=== PATIENT | male | born 1965 | race Caucasian/White ===

== ENCOUNTER 2019-03-04 21:22 | Inpatient (IN) | payer OTHER ==
[2019-03-04] MEDS ORDERED: Ticagrelor* 90 MG TAB PO ONE (21:24)
[2019-03-04] MEDS ORDERED: Heparin for STEMI(*) 5,000 UNITS/ML 1 ML VIAL IV ONE (21:24)
--- NOTE | 2019-03-04 21:29 | ED ---
HPI Chest Pain - HPI Summary HPI Summary: Patient is a 53 y/o M presenting to [facility] via EMS for STEMI. 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 SOB and diaphoresis are endorsed as well. 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 EMS 12 lead was diagnostic for STEMI. ASA 324 and 3 nitro SL were administered. Patient rates current pain 6/10. 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 Patient is supposed to be on Xarelto but stopped taking this and all his other medications two years ago. Patient has two stents placed in his right leg. He is a current 2 pack a day smoker. Home medications and allergies are reviewed. - History of Current Complaint Hx Obtained From: Patient Onset/Duration: Started Hours Ago, Still Present Timing: Constant, Lasting Hours Initial Severity: Severe Current Severity: Moderate Pain Scale Used: 0-10 Numeric Chest Pain Location: Lower Sternal Character: Crushing Associated Signs and Symptoms: Positive: Chest Pain, Shortness of Breath, Diaphoresis - Allergy/Home Medications Allergies/Adverse Reactions: Allergies Allergy/AdvReac Type Severity Reaction Status Date / Time Iodinated Contrast Media Allergy Swelling Verified 03/04/19 22:02 Of Face,Lips,& Throat Home Medications: Home Medications NK [No Home Medications Reported] 03/04/19 [History Confirmed 03/04/19] PMH/Surg Hx/FS Hx/Imm Hx Endocrine/Hematology History: Denies: Hx Diabetes, Hx Thyroid Disease Cardiovascular History: Reports: Hx Hypertension - PT CURRENTLY NOT ON MEDS Respiratory History: Denies: Hx Asthma, Hx Chronic Obstructive Pulmonary Disease (COPD) GI History: Denies: Hx Ulcer - Surgical History Surgery Procedure, Year, and Place: LEG SURGERY FOR BLOOD CLOTS ("BLEW THE CLOTS OUT AND PUT A STENT IN") Infectious Disease History: Denies: Hx Hepatitis, Hx Human Immunodeficiency Virus (HIV) - Family History Known Family History: Positive: Other - Liver cancer - father - Social History Alcohol Use: None Substance Use Type: Reports: None Smoking Status (MU): Heavy Every Day Tobacco Smoker Type: Cigarettes Amount Used/How Often: 1ppd Review of Systems Positive: Skin Diaphoresis Positive: Chest Pain Positive: Shortness Of Breath All Other Systems Reviewed And Are Negative: Yes Physical Exam - Summary Physical Exam Summary: General: Well-developed, Well-nourished Male. He appears older than stated age. Patient presents in moderate discomfort. HEENT: Normocephalic, Atraumatic. Eyes: Conjuctiva normal, PERRL. Ears: TMs within normal limits. Nares: (-) discharge, (-) erythema. Oropharynx: Clear, mucous membranes moist, (-) exudates. Neck: Soft, FROM, (-) lymphadenopathy, (-) thyromegaly, (-) JVD. Cardiovascular: Normal sinus rhythm, (-) murmur. Lungs: Clear to auscultation bilaterally (-) wheezes, (-) rales, (-) rhonchi. Abdomen: Soft, non-tender, non-distended, (-) organomegaly, normal bowel sounds. Back: (-) CVA tenderness Extremities: No edema. Skin: Warm, dry, (-) rash. Neuro: Alert and oriented x3, no focal deficits. Psychiatric: Mood normal, affect normal. Triage Information Reviewed: Yes Vital Signs On Initial Exam: Initial Vitals Pulse Resp BP Pulse Ox 91 19 176/116 99 03/04/19 21:24 03/04/19 21:24 03/04/19 21:24 03/04/19 21:24 Vital Signs Reviewed: Yes Procedures - Sedation Patient Received Moderate/Deep Sedation with Procedure: No Diagnostics - Laboratory Result Diagrams: 03/04/19 21:38 03/04/19 21:38 Lab Statement: Any lab studies that have been ordered have been reviewed, and results considered in the medical decision making process. - EKG 2127 Cardiac Rate: NL - rate of 92 BPM EKG Rhythm: Sinus Rhythm ST Segment: Other Summary of EKG Findings: EKG was positive for STEMI. ST elevations noted in V1- V4. This EKG was reviewed and interpreted by Dr. Milian. Chest Pain Course/Dx - Course Course Of Treatment: 53-year-old male presents from home by ambulance with sudden onset of severe chest pain. Accompanied by shortness of breath and diaphoresis. No cardiac history but multiple risk factors. EMS administered 324 ASA and 3 nitro SL. STEMI alert was called.During ED course, patient received Brilinta 180 mg PO, Nitro Drip 25,000 mcg in 250 mls, Heparin Drip 25, 000 units in 500 mls, and Heparin Bolus 4000 units IV. patient met in the emergency room by Dr. stevens. Taken to the Director Of Financial Aid for STEMI. - Diagnoses Provider Diagnoses: STEMI (ST elevation myocardial infarction) During the Visit The Following Alert/Code Occurred: STEMI - STEMI called on overhead at 2108 with ETA of approximately 20 minutes. 2120 - EMS arrived with patient, provider in room to evaluate immediately. - Provider Notifications Discussed Care Of Patient With: Marilin Rivera Time Discussed With Above Provider: 21:26 Instructed by Provider To: Other - 2125 - Patient's case was discussed with Dr. Rivera, Dr. Rivera en-route to ED. 2144 - Dr. Rivera evaluated the patient, patient was taken to pathology lab technician. Discharge ED - Sign-Out/Discharge Documenting (check all that apply): Patient Departure - admit - Discharge Plan Condition: Guarded Disposition: ADMITTED TO [facility] - Billing Disposition and Condition Condition: GUARDED Disposition: Admitted to [facility] - Attestation Statements Document Initiated by Daryle: Yes Documenting Scribe: MELINDA DIGGS Provider For Whom Scribe is Documenting (Include Credential): KIM MILIAN MD Scribe Attestation: I, MELINDA DIGGS, scribed for KIM MILIAN MD on 03/05/19 at 0004. Scribe Documentation Reviewed: Yes Provider Attestation: The documentation as recorded by the primoibMELINDA lowry accurately reflects the service I personally performed and the decisions made by me, KIM MILIAN MD Status of Scribe Document: Viewed
[2019-03-04] MEDS ORDERED: Heparin DRIP 25,000 UNITS(*) 25,000 UNITS/500 ML BAG ONE (21:32)
[2019-03-04] MEDS ORDERED: nitroGLYCERIN DRIP* 25,000 MCG/250 ML BTL ONE ×2 (21:32→23:05)
[2019-03-04] MEDS ORDERED: nitroGLYCERIN DRIP* 25,000 MCG/250 ML BTL IV ONE (21:37)
[2019-03-04] MEDS ORDERED: diPHENhydraMINE IV* 50 MG/ML 1 ml VIAL (BENADRYL) ONE (21:50)
[2019-03-04] MEDS ORDERED: methylPREDNISolone 125 MG* 2 ML VIAL ONE (21:50)
[2019-03-04 21:55] LABS: ABS Basophils 0.1 10^3/ul (0-0.2); ABS Eosinophils 0.3 10^3/ul (0-0.6); ABS Monocytes 1.2 10^3/ul (0-0.8); ABS Neutrophils 5.6 10^3/ul (1.5-7.7); Eosinophil % 2.7 %; Hematocrit 38 % (42-52); Hemoglobin 13.2 g/dL (14.0-18.0); Lymphocyte % 29.9 %; Mean Corpuscular HGB Conc 35 g/dL (31-36); Mean Corpuscular Hemoglobin 31 pg (27-31); Mean Corpuscular Volume 90 fL (80-94); Mean Platelet Volume 7.7 fL (7.4-10.4); Platelet Count 318 10^3/uL (150-450); Red Blood Count 4.25 10^6 /uL (4.18-5.48); Red Cell Distribution Width 15 % (10-15); White Blood Count 10.2 10^3/uL (3.5-10.8)
[2019-03-04] MEDS ORDERED: Iodixanol 320 (CONTRAST) 100 ML SDV ONE ×2 (21:56→22:13)
[2019-03-04] MEDS ORDERED: Midazolam* 1 MG/ML 5 ML VIAL (5 MG) ONE (21:56)
[2019-03-04] MEDS ORDERED: fentaNYL* 50 MCG/ML 2 ML VIAL (100 MCG VIAL) ONE ×2 (21:56→22:48)
[2019-03-04 22:09] LABS: ALT 23 U/L (7-52); AST 20 U/L (13-39); Albumin 4.3 g/dL (3.2-5.2); Albumin/Globulin Ratio 1.3 (1-3); Alkaline Phosphatase 52 U/L (34-104); Anion Gap 8 mmol/L (2-11); BUN/Creatinine Ratio 13.9 (8-20); Blood Urea Nitrogen 17 mg/dL (6-24); CO2 Carbon Dioxide 26 mmol/L (22-32); Calcium 9.6 mg/dL (8.6-10.3); Chloride 100 mmol/L (101-111); Creatine Kinase 79 U/L (10-223); EGFR African American 74.9 (>60); EGFR Non-African American 61.9 (>60); Globulin 3.3 g/dL (2-4); Glucose 135 mg/dL (70-100); LDL Cholesterol Direct 196 mg/dL; Potassium 3.4 mmol/L (3.5-5.0); Sodium 134 mmol/L (135-145); Total Protein 7.6 g/dL (6.4-8.9)
[2019-03-04] MEDS ORDERED: KCL 10 MEQ/50 ML IVPREMIX* 10 MEQ/50 ML BAG ONE (22:10)
[2019-03-04 22:13] LABS: Myoglobin 129.5 ng/mL (17.4-105.7)
[2019-03-04 22:14] LABS: CKMB ng/mL 2.9 ng/mL (0.6-6.3)
[2019-03-04 22:16] LABS: Troponin I 0.09 ng/mL (<0.04)
[2019-03-04] MEDS ORDERED: Heparin(*) 1000 UNIT/ML 10 ML VIAL CATH LAB IV ONE (23:04)
[2019-03-04] MEDS ORDERED: VERAPAMIL 2.5 MG/ML 2 ML VIAL ** 5 mg/2 ml ONE (23:04)
[2019-03-04] MEDS ORDERED: Heparin 2 UNITS/ML IVPREMIX* 2,000 ML IV ONE (23:05)
[2019-03-04] MEDS ORDERED: Lidocaine 1% INJ* 10 MG/ML 30 ML SDV ONE (23:05)
[2019-03-04] MEDS ORDERED: NS 0.9% 1000 ML** 1,000 ML IV SCH (23:15)
[2019-03-04 23:36] LABS: Cholesterol 248 mg/dL; LDL Cholesterol 172 mg/dL; Triglycerides 254 mg/dL
[2019-03-04] MEDS ORDERED: nitroGLYCERIN DRIP* 25,000 MCG/250 ML BTL IV SCH (23:45)
[2019-03-04] MEDS: fentaNYL* 50 MCG/ML 2 ML VIAL (100 MCG VIAL) IV PRN (23:51)
[2019-03-05] MEDS: Metoprolol Tartrate TAB* 25 MG PO SCH ×2 (00:06→06:04)
[2019-03-05] MEDS: Atorvastatin* 80 MG TAB PO SCH ×2 (00:06→16:38)
[2019-03-05] MEDS: Enoxaparin(*) 40 MG/0.4 ML SYR SUBCUT SCH ×2 (00:07→21:13)
[2019-03-05 00:59] LABS: Creatine Kinase 1530 U/L (10-223)
[2019-03-05 01:04] LABS: CKMB ng/mL 224.1 ng/mL (0.6-6.3)
[2019-03-05 01:05] LABS: Troponin I 16.85 ng/mL (<0.04)
[2019-03-05] MEDS: oxyCODONE/Acetamin 5/325 MG* TAB PO PRN (02:39)
[2019-03-05 05:13] LABS: Anion Gap 8 mmol/L (2-11); Blood Urea Nitrogen 19 mg/dL (6-24); CO2 Carbon Dioxide 23 mmol/L (22-32); Calcium 9.3 mg/dL (8.6-10.3); Chloride 102 mmol/L (101-111); EGFR African American 94.2 (>60); EGFR Non-African American 77.9 (>60); Glucose 148 mg/dL (70-100); Potassium 4.2 mmol/L (3.5-5.0); Sodium 133 mmol/L (135-145)
[2019-03-05 05:19] LABS: CKMB ng/mL > 300.0 ng/mL (0.6-6.3); Troponin I 67.81 ng/mL (<0.04)
[2019-03-05 05:31] LABS: Creatine Kinase 2489 U/L (10-223)
[2019-03-05] MEDS: fentaNYL* 50 MCG/ML 2 ML VIAL (100 MCG VIAL) IV PRN (06:28)
[2019-03-05] MEDS ORDERED: Perflutren Lipid Microsphere* 3 ML VIAL ONE (08:14)
[2019-03-05] MEDS ORDERED: Metoprolol Tartrate TAB* 25 MG PO ONE (09:30)
--- NOTE | 2019-03-05 09:31 | PN ---
Subjective Date of Service: 03/05/19 - anterior STEMI s/p PCI Interval History: Patient presented 03/04/2019 to [facility] after 1.5 hours of ongoing substernal chest pain (ache) radiating down left arm with diaphoresis. Underwent urgent LHC due to anterior STEMI. No recurrent c/o chest pain since. Does c/o SOB. No dizziness , right radial access pain or palpitations. Right radial access site had scant oozing this morning thus, TR band still in place Medications Active Medications: Acetaminophen (Tylenol Tab*) 650 mg PO Q4H PRN PRN Reason: MILD PAIN or TEMP > 100.4 Aspirin (Aspirin 81 Mg Chew Tab*) 81 mg PO DAILY [facility] Atorvastatin Calcium (Lipitor*) 80 mg PO DAILY@1700 [facility] Last Admin: 03/05/19 00:06 Dose: 80 mg Enoxaparin Sodium (Lovenox(*)) 40 mg SUBCUT BEDTIME [facility] Last Admin: 03/05/19 00:07 Dose: 40 mg Fentanyl Citrate (Fentanyl*) 75 mcg 0.75 mcg/kg (71.5 mcg) IV Q4H PRN PRN Reason: PAIN - SEVERE Last Admin: 03/05/19 06:28 Dose: 75 mcg Metoprolol Tartrate (Lopressor Tab*) 25 mg PO Q6HR [facility] Last Admin: 03/05/19 06:04 Dose: 25 mg Nitroglycerin (Nitroglycerin Tab 0.4 Mg*) 0.4 mg SL Q5M PRN PRN Reason: ANGINA Oxycodone/Acetaminophen (Percocet 5/325 Tab*) 1 tab PO Q6H PRN PRN Reason: PAIN - MODERATE Last Admin: 03/05/19 02:39 Dose: 1 tab Ticagrelor (Brilinta*) 90 mg PO BID [facility] Objective Vital Signs: Temp Pulse Resp BP Pulse Ox 97.3 F 80 18 168/105 98 03/05/19 08:00 03/05/19 09:00 03/05/19 09:00 03/05/19 09:00 03/05/19 09:00 Oxygen Devices in Use Now: None Appearance: SOB with conversation, Alert and oriented. cooperative. Ears/Nose/Mouth/Throat: NL Teeth, Lips, Gums, Mucous Membranes Moist Neck: NL Appearance and Movements; NL JVP, Trachea Midline Respiratory: Symmetrical Chest Expansion and Respiratory Effort, Clear to Auscultation Cardiovascular: NL Sounds; No Murmurs; No JVD, No Edema Abdominal: NL Sounds; No Tenderness; No Distention Extremities: - - right radial access site examined. TR band in place( deflated) . cap refill < 3 seconds. 2+ right radial pulse. no thrill or hematoma. Neurological: Alert and Oriented x 3 Lines/Tubes/Other Access: Clean, Dry and Intact Peripheral IV Laboratory Results: 03/04/19 21:38 03/05/19 04:25 INR (Anticoag Therapy) 1.00 (0.82-1.09) 03/04/19 21:38 APTT 29.0 seconds (26.0-38.0) 03/04/19 21:38 Total Bilirubin 0.50 mg/dL (0.2-1.0) 03/04/19 21:38 AST 20 U/L (13-39) 03/04/19 21:38 ALT 23 U/L (7-52) 03/04/19 21:38 Alkaline Phosphatase 52 U/L (34-104) 03/04/19 21:38 CK-MB (CK-2) > 300.0 ng/mL (0.6-6.3) H 03/05/19 04:25 B-Natriuretic Peptide 62 pg/mL (<=100) 03/04/19 21:38 Total Protein 7.6 g/dL (6.4-8.9) 03/04/19 21:38 Albumin 4.3 g/dL (3.2-5.2) 03/04/19 21:38 Globulin 3.3 g/dL (2-4) 03/04/19 21:38 Albumin/Globulin Ratio 1.3 (1-3) 03/04/19 21:38 Triglycerides 254 mg/dL 03/04/19 21:38 Cholesterol 248 mg/dL 03/04/19 21:38 LDL Cholesterol 172 mg/dL 03/04/19 21:38 HDL Cholesterol 25.0 mg/dL 03/04/19 21:38 03/04/19 03/05/19 03/05/19 21:38 00:28 04:25 Troponin I 0.09 H* 16.85 H* 67.81 H* Laboratory Results - last 24 hr 03/04/19 03/04/19 03/04/19 21:38 21:38 21:38 WBC 10.2 RBC 4.25 Hgb 13.2 L Hct 38 L MCV 90 MCH 31 MCHC 35 RDW 15 Plt Count 318 MPV 7.7 Neut % (Auto) 55.2 Lymph % (Auto) 29.9 [place] % (Auto) 11.6 Eos % (Auto) 2.7 Baso % (Auto) 0.6 Absolute Neuts (auto) 5.6 Absolute Lymphs (auto) 3.0 Absolute Monos (auto) 1.2 H Absolute Eos (auto) 0.3 Absolute Basos (auto) 0.1 Absolute Nucleated RBC 0.0 Nucleated RBC % 0.0 INR (Anticoag Therapy) 1.00 APTT 29.0 POC Activ Clotting Time Sodium 134 L Potassium 3.4 L Chloride 100 L Carbon Dioxide 26 Anion Gap 8 BUN 17 Creatinine 1.22 H Est GFR ( Amer) 74.9 Est GFR (Non-Af Amer) 61.9 BUN/Creatinine Ratio 13.9 Glucose 135 H Hemoglobin A1c Lactic Acid Calcium 9.6 Total Bilirubin 0.50 AST 20 ALT 23 Alkaline Phosphatase 52 Total Creatine Kinase 79 CK-MB (CK-2) 2.9 Myoglobin 129.5 H Troponin I 0.09 H* B-Natriuretic Peptide Total Protein 7.6 Albumin 4.3 Globulin 3.3 Albumin/Globulin Ratio 1.3 Triglycerides 254 Cholesterol 248 LDL Cholesterol 172 LDL Cholesterol Direct 196 HDL Cholesterol 25.0 03/04/19 03/04/19 03/04/19 21:38 21:38 21:38 WBC RBC Hgb Hct MCV MCH MCHC RDW Plt Count MPV Neut % (Auto) Lymph % (Auto) [place] % (Auto) Eos % (Auto) Baso % (Auto) Absolute Neuts (auto) Absolute Lymphs (auto) Absolute Monos (auto) Absolute Eos (auto) Absolute Basos (auto) Absolute Nucleated RBC Nucleated RBC % INR (Anticoag Therapy) APTT POC Activ Clotting Time Sodium Potassium Chloride Carbon Dioxide Anion Gap BUN Creatinine Est GFR ( Amer) Est GFR (Non-Af Amer) BUN/Creatinine Ratio Glucose Hemoglobin A1c 6.1 H Lactic Acid 2.7 H* Calcium Total Bilirubin AST ALT Alkaline Phosphatase Total Creatine Kinase CK-MB (CK-2) Myoglobin Troponin I B-Natriuretic Peptide 62 Total Protein Albumin Globulin Albumin/Globulin Ratio Triglycerides Cholesterol LDL Cholesterol LDL Cholesterol Direct HDL Cholesterol 03/04/19 03/04/19 03/05/19 22:16 22:32 00:28 WBC RBC Hgb Hct MCV MCH MCHC RDW Plt Count MPV Neut % (Auto) Lymph % (Auto) [place] % (Auto) Eos % (Auto) Baso % (Auto) Absolute Neuts (auto) Absolute Lymphs (auto) Absolute Monos (auto) Absolute Eos (auto) Absolute Basos (auto) Absolute Nucleated RBC Nucleated RBC % INR (Anticoag Therapy) APTT POC Activ Clotting Time 219 255 Sodium Potassium Chloride Carbon Dioxide Anion Gap BUN Creatinine Est GFR ( Amer) Est GFR (Non-Af Amer) BUN/Creatinine Ratio Glucose Hemoglobin A1c Lactic Acid Calcium Total Bilirubin AST ALT Alkaline Phosphatase Total Creatine Kinase 1530 H CK-MB (CK-2) 224.1 H Myoglobin Troponin I 16.85 H* B-Natriuretic Peptide Total Protein Albumin Globulin Albumin/Globulin Ratio Triglycerides Cholesterol LDL Cholesterol LDL Cholesterol Direct HDL Cholesterol 03/05/19 04:25 WBC RBC Hgb Hct MCV MCH MCHC RDW Plt Count MPV Neut % (Auto) Lymph % (Auto) [place] % (Auto) Eos % (Auto) Baso % (Auto) Absolute Neuts (auto) Absolute Lymphs (auto) Absolute Monos (auto) Absolute Eos (auto) Absolute Basos (auto) Absolute Nucleated RBC Nucleated RBC % INR (Anticoag Therapy) APTT POC Activ Clotting Time Sodium 133 L Potassium 4.2 Chloride 102 Carbon Dioxide 23 Anion Gap 8 BUN 19 Creatinine 1.00 Est GFR ( Amer) 94.2 Est GFR (Non-Af Amer) 77.9 BUN/Creatinine Ratio 19.0 Glucose 148 H Hemoglobin A1c Lactic Acid Calcium 9.3 Total Bilirubin AST ALT Alkaline Phosphatase Total Creatine Kinase 2489 H CK-MB (CK-2) > 300.0 H Myoglobin Troponin I 67.81 H* B-Natriuretic Peptide Total Protein Albumin Globulin Albumin/Globulin Ratio Triglycerides Cholesterol LDL Cholesterol LDL Cholesterol Direct HDL Cholesterol Diagnostic Imaging: [facility] 03/04/2019; Proximal LAD 90%, Lcx mid 50%, RCA PDA small with diffuse plaque. Patient underwent ELLEN to proximal LAD with 3X16mm ELLEN distal edge dissection covered with 3X8mm ELLEN EKG Data: 03/05/2019; NSR rate [address] elevation in V1-3 with bisphasic TW. Telemetry; reviewed. NSR rate 65-75. Assessment/Plan #1 s/p Anterior STEMI 03/04/2019. Patient presented after 1.5 hours of onset of symptoms. Underwent successful ELLEN/ Proximal LAD complicated by distal edge dissection covered with 3X8mm ELLEN. No recurrent c/o chest pain (ache) Does report dyspnea. Lungs are clear on exam. ? due to Brilinta. I asked that he drink caffeine prior to taking Brilinta this morning. He is on ASA 81/day, Brilinta 90mg Po BID, Lipitor and Lopressor therapy. ECG revealed anterior ST elevation in V1-V3 with associated biphasic TW changes. Troponin has not peaked thus will cycle enzymes. Patient will need echo. LV gram not performed due to reported contrast allergy, he is to have echo updated today. In the past he was non compliant with medications however, he reports he will be compliant from now on. 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 Per patient he underwent stenting to right popliteal in 2010 and in 2011 had a recurrent DVT. He reports history of Lupus anticoagulant historically saw Dr. Randhawa. He stopped taking Xarelto 2 years ago. ( cites ignorance as to why he stopped medication, denies bleeding complication). Will consult hematology given patient is now on DAPT for above #1. Will continue Lovenox for the time being. Records requested from [facility] and Dr. Randhawa's office #3 h/o HLD; LDL this admit 172. Now on Lipitor 80QHS. Will need repeat FLP/LFT in 6-8 weeks. #4 HTN; on Lopressor 25mg PO Q6H. He recieved 2 doses. Will convert dosing to 50mg Po BID and uptitrate accordingly. Heart rate 65-70 on telemetry. He may benefit from ACEI. Will await echo. Renal function normalized with hydration. #5 Disposition pending course. Patient full code. Will d/w Dr Rivera. Attending: Marilin Rivera
[2019-03-05] MEDS: Ticagrelor* 90 MG TAB PO SCH ×2 (09:46→21:12)
[2019-03-05] MEDS: Aspirin 81 mg CHEW TAB* 81 MG TAB.CHEW PO SCH (09:46)
--- NOTE | 2019-03-05 09:53 | ECHO ---
*[facility]* [place] [address] Fax #: [phone] Transthoracic Echocardiogram Patient: Stan Toscano : 1965 Study Date: 03/05/2019 Age: 53 Gender: M HR: 81 bpm Height: 71 in /180.3 cm BSA: 2.15 m^2 Weight: 209.6 lb /95.3 kg BMI: 29.3 kg/m^2 *Circuit Design Engineer: * Christen Mcnamara RDCS RN *Referring Physician: * Marilin Rivera MD *Reading Physician: * Mali Cruz MD Indications: Myocardial Infarction (new). S/P PCI. History: Blood clots of the right leg with stenting. Factor V deficiency. Risk factors: Current tobacco use. Hypertension. Conclusions Summary: - Left ventricle: The cavity size is normal. Wall thickness is mildly to moderately increased. Systolic function is mildly reduced. The estimated ejection fraction is 45-50%. Hypokinesis of the mid-apicalanteroseptal myocardium. Hypokinesis of the apicalinferior myocardium. Hypokinesis of the apicallateral myocardium. Hypokinesis of the apicalanterior myocardium. - Right ventricle: Hypokinesis of the RV apex. - Mitral valve: There is trace regurgitation. - No previous echocardiogram available. Study data: Transthoracic echocardiogram. Procedure: Transthoracic echocardiography was performed. Image quality was fair. The study was technically limited due to Smoking history. Intravenous Definity 4 ml was administered by Anabel Mcnamara RN, RDCS to enhance imaging. Complete 2D, spectral Doppler, and color flow Doppler. Location: Bedside. Patient room number: ICU 8. Rhythm: Normal sinus rhythm with PVC's. Findings Left ventricle: The cavity size is normal. Wall thickness is mildly to moderately increased. Systolic function is mildly reduced. The estimated ejection fraction is 45-50%. Regional wall motion abnormalities: Hypokinesis of the mid-apicalanteroseptal myocardium. Hypokinesis of the apicalinferior myocardium. Hypokinesis of the apicallateral myocardium. Hypokinesis of the apicalanterior myocardium. Doppler parameters are consistent with abnormal left ventricular relaxation (grade 1 diastolic dysfunction). Right ventricle: The cavity size is normal. Systolic function is normal. Hypokinesis of the RV apex. Left atrium: The atrium is normal in size. Right atrium: The atrium is normal in size. Mitral valve: The leaflets are normal thickness. There is no evidence of stenosis. There is trace regurgitation. Aortic valve: The valve is trileaflet. The leaflets are mildly thickened. There is no evidence of stenosis. There is no significant regurgitation. Tricuspid valve: The leaflets are normal thickness. There is no evidence of stenosis. There is trace regurgitation. Pulmonic valve: The leaflets are normal thickness. There is no evidence of stenosis. There is trace regurgitation. Aorta: Aortic root: The aortic root is appears normal. Ascending aorta: The ascending aorta is appears normal. Aortic arch: The aortic arch is not dilated. Pericardium: There is no significant pericardial effusion. Pulmonary arteries: The main pulmonary artery is normal-sized. Systolic pressure can not be accurately estimated. Systemic veins: Not visualized. Measurements Left ventricle Value Ref Aortic valve Value Ref PARK, LAX 4.6 cm 4.2 - 5.8 Nas diam, ED 1.7 cm ---- ESD, LAX 3.8 cm 2.5 - 4.0 Peak v, S 1.27 m/sec ---- FS, LAX (L) 17 % 25 - 43 VTI, S 21.3 cm ---- PW, ED (H) 1.2 cm 0.6 - 1.0 Mean grad, S 4.0 mm Hg ---- IVS/PW, ED 1.12 Peak grad, S 6.0 mm Hg ---- E', lat nas, TDI (L) 7.3 cm/sec >=10.0 LVOT/AV, VTI ratio 0.96 --- - E/e', lat nas, 8 TDI Mitral valve Value Ref E', med nas, TDI (L) 6.6 cm/sec >=7.0 Peak E 0.6 m/sec --- - E/e', med nas, 9 Peak A 0.8 m/sec ---- TDI Decel time 211 ms ---- E', avg, TDI 7.0 cm/sec Peak E/A ratio 0.8 ---- E/e', avg, TDI 9 <=14 Pulmonic valve Value Ref LVOT Value Ref Peak v, S 0.98 m/sec ---- Peak gamaliel, S 1.08 m/sec Peak grad, S 4.0 mm Hg ---- VTI, S 20.4 cm Mean grad, S 3 mm Hg Aortic root Value Ref Root diam 3.1 cm <4.3 Ventricular septum Value Ref IVS, ED (H) 1.4 cm 0.6 - 1.0 Ascending aorta Value Ref AAo AP diam, S 3.0 cm ---- Right ventricle Value Ref PARK minor ax, 2.9 cm 1.9 - 3.5 Aortic arch Value Ref A4C mid Arch diam 2.9 cm ---- Left atrium Value Ref Decending aorta Value Ref AP dim, ES 3.50 cm 3.00 - Luiza peak gamaliel 0.73 m/sec ---- 4.00 ML dim, A4C 4.1 cm SI dim, A4C 4.5 cm Vol/bsa, ES, 1-p 18 ml/m^2 12 - 37 A4C Vol/bsa, ES, A/L 31 ml/m^2 16 - 34 Right atrium Value Ref ML dim, ES, A4C 3.7 cm 2.6 - 4.4 SI dim, ES, A4C 4.4 cm 3.4 - 5.3 Legend: (L) and (H) navid values outside specified reference range. Prepared and electronically signed by Mali Cruz MD 03/05/2019 09:53
[2019-03-05] MEDS ORDERED: Lisinopril TAB* 5 MG PO SCH (10:00)
[2019-03-05 10:03] LABS: Urine Appearance Clear; Urine Bilirubin Negative (Negative); Urine Blood Negative (Negative); Urine Color Straw; Urine Glucose Negative (Negative); Urine Ketones Negative (Negative); Urine Nitrite Negative (Negative); Urine Protein Negative (Negative); Urine Specific Gravity 1.015 (1.010-1.030); Urine Urobilinogen Negative (Negative)
[2019-03-05 10:19] LABS: Troponin I > 74.00 ng/mL (<0.04)
[2019-03-05 11:03] LABS: Creatine Kinase 2195 U/L (10-223)
--- NOTE | 2019-03-05 12:18 | CONSULT ---
<Halima Corbett - Last Filed: 03/05/19 17:35> Consultation - Reason for Consultation Reason for Consultation: Lupus Anticardiolipin antibody, Anticoagulation recommendation Ordering Provider: Marilin Rivera Chief Complaint: Chest pain History of Present Illness: Mr. 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 This was initially treated @ [facility] and he was seen by Dr. Randhawa in October of 2011. He was initially treated with arterial stenting and coumadin, however, had recurrent thrombus and was transitioned to Arixta. Mr. Toscano struggled with the injections and in August 2012 transition to Xarelto 20 mg daily. He was followed routinely until October of 2014 at which time he was lost to f/u for unclear reasons. Presented to the hospital with several days of chest pain, found to have an anterior STEMI and subsequently had catheterization with stent placement. Per cardiology blockage 2/2 plaque, rupture with thrombis NOT felt to be emboli given progressive symptoms over 3 weeks. Mr. Toscano tells me he stopped taking his anticoagulant as he was "sick of the doctor and you had to see the doctor to get it." States he is exhausted as he has not slept since last night. Chest pain persists though nitro is helping, "They tell me they couldn't open one so its the only thing that will help it to finally push through." Allergies/Medications Medication: Home Medications: Not currently taking any meds Current Medications: Acetaminophen (Tylenol Tab*) 650 mg PO Q4H PRN PRN Reason: MILD PAIN or TEMP > 100.4 Aspirin (Aspirin 81 Mg Chew Tab*) 81 mg PO DAILY [facility] Last Admin: 03/05/19 09:46 Dose: 81 mg Atorvastatin Calcium (Lipitor*) 80 mg PO DAILY@1700 [facility] Last Admin: 03/05/19 00:06 Dose: 80 mg Captopril (Capoten Tab*) 6.25 mg PO TID [facility] Enoxaparin Sodium (Lovenox(*)) 40 mg SUBCUT BEDTIME [facility] Last Admin: 03/05/19 00:07 Dose: 40 mg Metoprolol Tartrate (Lopressor Tab*) 50 mg PO BID [facility] Nicotine (Nicotine Patch 21 Mg/24 Hr*) 1 patch TRANSDERM DAILY@0800 [facility] Nitroglycerin (Nitroglycerin Tab 0.4 Mg*) 0.4 mg SL Q5M PRN PRN Reason: ANGINA Oxycodone/Acetaminophen (Percocet 5/325 Tab*) 1 tab PO Q6H PRN PRN Reason: PAIN - MODERATE Last Admin: 03/05/19 02:39 Dose: 1 tab Pharmacy Profile Note (Nicotine Patch Removal Note*) 1 note FOLLOW UP 0600 [facility] Temazepam (Restoril Cap*) 15 mg PO BEDTIME PRN PRN Reason: INSOMNIA Ticagrelor (Brilinta*) 90 mg PO BID [facility] Last Admin: 03/05/19 09:46 Dose: 90 mg Allergies/Adverse Reactions: Allergies Allergy/AdvReac Type Severity Reaction Status Date / Time Iodinated Contrast Media Allergy Swelling Verified 03/04/19 22:02 Of Face,Lips,& Throat History - Past Medical History Hx Circulatory Problems: Yes - PVD Hx Hypertension: Yes Other History: COPD. Depression - Family History Hx Family Cancer: Yes - father lung cancer, non-smoker Other Family History: no history of blood clots in family - Social History Hx Alcohol Use: No Hx Tobacco Use: Yes Marital Status: Number of Children: 4 Review of Systems - Review of Systems Constitutional Symptoms: Positive: Fatigue Dermatology: Positive: Normal HEENT: Positive: Normal Eyes: Positive: Normal Pulmonary: Positive: Normal Cardiology: Positive: Chest Pain Gastroenterology: Positive: Normal Hematologic/Lymphatic: Positive: Other - Lupus anticardiolipin antibody Neurology: Positive: Other - Forgetful Physical Exam - Physical Exam Physical Examination: A&Ox3, EOMI, neuro grossly non-focal - request things be written down d/t forgetfulness HRR, S1S2, SR on tele LS clear bilat. with even and non-labored resp. +BS, soft and non-tender Rwrist cath site benign +PP=bilat, no peripheral edema noted Slightly flushed cheeks Results - Lab Results Lab Results: 03/04/19 03/04/19 03/04/19 21:38 21:38 21:38 WBC 10.2 RBC 4.25 Hgb 13.2 L Hct 38 L MCV 90 MCH 31 MCHC 35 RDW 15 Plt Count 318 MPV 7.7 Neut % (Auto) 55.2 Lymph % (Auto) 29.9 Mingo % (Auto) 11.6 Eos % (Auto) 2.7 Baso % (Auto) 0.6 Absolute Neuts (auto) 5.6 Absolute Lymphs (auto) 3.0 Absolute Monos (auto) 1.2 H Absolute Eos (auto) 0.3 Absolute Basos (auto) 0.1 Absolute Nucleated RBC 0.0 Nucleated RBC % 0.0 INR (Anticoag Therapy) 1.00 APTT 29.0 POC Activ Clotting Time Sodium 134 L Potassium 3.4 L Chloride 100 L Carbon Dioxide 26 Anion Gap 8 BUN 17 Creatinine 1.22 H Est GFR ( Amer) 74.9 Est GFR (Non-Af Amer) 61.9 BUN/Creatinine Ratio 13.9 Glucose 135 H Hemoglobin A1c Lactic Acid Calcium 9.6 Total Bilirubin 0.50 AST 20 ALT 23 Alkaline Phosphatase 52 Total Creatine Kinase 79 CK-MB (CK-2) 2.9 Myoglobin 129.5 H Troponin I 0.09 H* B-Natriuretic Peptide Total Protein 7.6 Albumin 4.3 Globulin 3.3 Albumin/Globulin Ratio 1.3 Triglycerides 254 Cholesterol 248 LDL Cholesterol 172 LDL Cholesterol Direct 196 HDL Cholesterol 25.0 Urine Color Urine Appearance Urine pH Ur Specific Monroe Urine Protein Urine Ketones Urine Blood Urine Nitrate Urine Bilirubin Urine Urobilinogen Ur Leukocyte Esterase Urine Glucose 03/04/19 03/04/19 03/04/19 21:38 21:38 21:38 WBC RBC Hgb Hct MCV MCH MCHC RDW Plt Count MPV Neut % (Auto) Lymph % (Auto) Mingo % (Auto) Eos % (Auto) Baso % (Auto) Absolute Neuts (auto) Absolute Lymphs (auto) Absolute Monos (auto) Absolute Eos (auto) Absolute Basos (auto) Absolute Nucleated RBC Nucleated RBC % INR (Anticoag Therapy) APTT POC Activ Clotting Time Sodium Potassium Chloride Carbon Dioxide Anion Gap BUN Creatinine Est GFR ( Amer) Est GFR (Non-Af Amer) BUN/Creatinine Ratio Glucose Hemoglobin A1c 6.1 H Lactic Acid 2.7 H* Calcium Total Bilirubin AST ALT Alkaline Phosphatase Total Creatine Kinase CK-MB (CK-2) Myoglobin Troponin I B-Natriuretic Peptide 62 Total Protein Albumin Globulin Albumin/Globulin Ratio Triglycerides Cholesterol LDL Cholesterol LDL Cholesterol Direct HDL Cholesterol Urine Color Urine Appearance Urine pH Ur Specific Monroe Urine Protein Urine Ketones Urine Blood Urine Nitrate Urine Bilirubin Urine Urobilinogen Ur Leukocyte Esterase Urine Glucose 03/04/19 03/04/19 03/05/19 22:16 22:32 00:28 WBC RBC Hgb Hct MCV MCH MCHC RDW Plt Count MPV Neut % (Auto) Lymph % (Auto) Mingo % (Auto) Eos % (Auto) Baso % (Auto) Absolute Neuts (auto) Absolute Lymphs (auto) Absolute Monos (auto) Absolute Eos (auto) Absolute Basos (auto) Absolute Nucleated RBC Nucleated RBC % INR (Anticoag Therapy) APTT POC Activ Clotting Time 219 255 Sodium Potassium Chloride Carbon Dioxide Anion Gap BUN Creatinine Est GFR ( Amer) Est GFR (Non-Af Amer) BUN/Creatinine Ratio Glucose Hemoglobin A1c Lactic Acid Calcium Total Bilirubin AST ALT Alkaline Phosphatase Total Creatine Kinase 1530 H CK-MB (CK-2) 224.1 H Myoglobin Troponin I 16.85 H* B-Natriuretic Peptide Total Protein Albumin Globulin Albumin/Globulin Ratio Triglycerides Cholesterol LDL Cholesterol LDL Cholesterol Direct HDL Cholesterol Urine Color Urine Appearance Urine pH Ur Specific Monroe Urine Protein Urine Ketones Urine Blood Urine Nitrate Urine Bilirubin Urine Urobilinogen Ur Leukocyte Esterase Urine Glucose 03/05/19 03/05/19 03/05/19 04:25 09:15 09:45 WBC RBC Hgb Hct MCV MCH MCHC RDW Plt Count MPV Neut % (Auto) Lymph % (Auto) Mingo % (Auto) Eos % (Auto) Baso % (Auto) Absolute Neuts (auto) Absolute Lymphs (auto) Absolute Monos (auto) Absolute Eos (auto) Absolute Basos (auto) Absolute Nucleated RBC Nucleated RBC % INR (Anticoag Therapy) APTT POC Activ Clotting Time Sodium 133 L Potassium 4.2 Chloride 102 Carbon Dioxide 23 Anion Gap 8 BUN 19 Creatinine 1.00 Est GFR ( Amer) 94.2 Est GFR (Non-Af Amer) 77.9 BUN/Creatinine Ratio 19.0 Glucose 148 H Hemoglobin A1c Lactic Acid Calcium 9.3 Total Bilirubin AST ALT Alkaline Phosphatase Total Creatine Kinase 2489 H 2195 H CK-MB (CK-2) > 300.0 H 296.0 H Myoglobin Troponin I 67.81 H* > 74.00 H* B-Natriuretic Peptide Total Protein Albumin Globulin Albumin/Globulin Ratio Triglycerides Cholesterol LDL Cholesterol LDL Cholesterol Direct HDL Cholesterol Urine Color Straw Urine Appearance Clear Urine pH 6.0 Ur Specific Monroe 1.015 Urine Protein Negative Urine Ketones Negative Urine Blood Negative Urine Nitrate Negative Urine Bilirubin Negative Urine Urobilinogen Negative Ur Leukocyte Esterase Negative Urine Glucose Negative Assessment and Plan Impression: 53 yo male with history of recurrent thrombosis with known Lupus anticardiolipin antibody admitted to the ICU for anterior STEMI s/p stent on dual platelet antibody, fortunately this current event does not appear related to acute thrombus. Recurrent thrombus risk very high with known antibody, fortunately he has not had a life threatening event while off anticoagulation. There is no contraindication to full dose anticoagulation with his current treatment and therefore resumption of his Xarelto is most appropriate. I reviewed this with him at length and he understands the reasoning and need for follow-up as an outpatient. Plan: Management per Cardiology Recommend full dose anticoagulation with Xarelto 20 mg daily starting tomorrow evening, give with meal Case reviewed with attending, Dr. Maurer. Plan for hem. f/u with Dr. Randhawa as outpatient ~ 1 mo. post d/c to review need for life long anticoagulation <Kalie Maurer - Last Filed: 03/06/19 07:14> Results - Lab Results Lab Results: 03/04/19 03/04/19 03/04/19 21:38 21:38 21:38 WBC 10.2 RBC 4.25 Hgb 13.2 L Hct 38 L MCV 90 MCH 31 MCHC 35 RDW 15 Plt Count 318 MPV 7.7 Neut % (Auto) 55.2 Lymph % (Auto) 29.9 Mingo % (Auto) 11.6 Eos % (Auto) 2.7 Baso % (Auto) 0.6 Absolute Neuts (auto) 5.6 Absolute Lymphs (auto) 3.0 Absolute Monos (auto) 1.2 H Absolute Eos (auto) 0.3 Absolute Basos (auto) 0.1 Absolute Nucleated RBC 0.0 Nucleated RBC % 0.0 INR (Anticoag Therapy) 1.00 APTT 29.0 POC Activ Clotting Time Sodium 134 L Potassium 3.4 L Chloride 100 L Carbon Dioxide 26 Anion Gap 8 BUN 17 Creatinine 1.22 H Est GFR ( Amer) 74.9 Est GFR (Non-Af Amer) 61.9 BUN/Creatinine Ratio 13.9 Glucose 135 H POC Glucose (mg/dL) Hemoglobin A1c Lactic Acid Calcium 9.6 Magnesium Total Bilirubin 0.50 AST 20 ALT 23 Alkaline Phosphatase 52 Total Creatine Kinase 79 CK-MB (CK-2) 2.9 Myoglobin 129.5 H Troponin I 0.09 H* B-Natriuretic Peptide Total Protein 7.6 Albumin 4.3 Globulin 3.3 Albumin/Globulin Ratio 1.3 Triglycerides 254 Cholesterol 248 LDL Cholesterol 172 LDL Cholesterol Direct 196 HDL Cholesterol 25.0 Urine Color Urine Appearance Urine pH Ur Specific Monroe Urine Protein Urine Ketones Urine Blood Urine Nitrate Urine Bilirubin Urine Urobilinogen Ur Leukocyte Esterase Urine Glucose 03/04/19 03/04/19 03/04/19 21:38 21:38 21:38 WBC RBC Hgb Hct MCV MCH MCHC RDW Plt Count MPV Neut % (Auto) Lymph % (Auto) Mingo % (Auto) Eos % (Auto) Baso % (Auto) Absolute Neuts (auto) Absolute Lymphs (auto) Absolute Monos (auto) Absolute Eos (auto) Absolute Basos (auto) Absolute Nucleated RBC Nucleated RBC % INR (Anticoag Therapy) APTT POC Activ Clotting Time Sodium Potassium Chloride Carbon Dioxide Anion Gap BUN Creatinine Est GFR ( Amer) Est GFR (Non-Af Amer) BUN/Creatinine Ratio Glucose POC Glucose (mg/dL) Hemoglobin A1c 6.1 H Lactic Acid 2.7 H* Calcium Magnesium Total Bilirubin AST ALT Alkaline Phosphatase Total Creatine Kinase CK-MB (CK-2) Myoglobin Troponin I B-Natriuretic Peptide 62 Total Protein Albumin Globulin Albumin/Globulin Ratio Triglycerides Cholesterol LDL Cholesterol LDL Cholesterol Direct HDL Cholesterol Urine Color Urine Appearance Urine pH Ur Specific Monroe Urine Protein Urine Ketones Urine Blood Urine Nitrate Urine Bilirubin Urine Urobilinogen Ur Leukocyte Esterase Urine Glucose 03/04/19 03/04/19 03/05/19 22:16 22:32 00:28 WBC RBC Hgb Hct MCV MCH MCHC RDW Plt Count MPV Neut % (Auto) Lymph % (Auto) Mingo % (Auto) Eos % (Auto) Baso % (Auto) Absolute Neuts (auto) Absolute Lymphs (auto) Absolute Monos (auto) Absolute Eos (auto) Absolute Basos (auto) Absolute Nucleated RBC Nucleated RBC % INR (Anticoag Therapy) APTT POC Activ Clotting Time 219 255 Sodium Potassium Chloride Carbon Dioxide Anion Gap BUN Creatinine Est GFR ( Amer) Est GFR (Non-Af Amer) BUN/Creatinine Ratio Glucose POC Glucose (mg/dL) Hemoglobin A1c Lactic Acid Calcium Magnesium Total Bilirubin AST ALT Alkaline Phosphatase Total Creatine Kinase 1530 H CK-MB (CK-2) 224.1 H Myoglobin Troponin I 16.85 H* B-Natriuretic Peptide Total Protein Albumin Globulin Albumin/Globulin Ratio Triglycerides Cholesterol LDL Cholesterol LDL Cholesterol Direct HDL Cholesterol Urine Color Urine Appearance Urine pH Ur Specific Monroe Urine Protein Urine Ketones Urine Blood Urine Nitrate Urine Bilirubin Urine Urobilinogen Ur Leukocyte Esterase Urine Glucose 03/05/19 03/05/19 03/05/19 04:25 09:15 09:45 WBC RBC Hgb Hct MCV MCH MCHC RDW Plt Count MPV Neut % (Auto) Lymph % (Auto) Mingo % (Auto) Eos % (Auto) Baso % (Auto) Absolute Neuts (auto) Absolute Lymphs (auto) Absolute Monos (auto) Absolute Eos (auto) Absolute Basos (auto) Absolute Nucleated RBC Nucleated RBC % INR (Anticoag Therapy) APTT POC Activ Clotting Time Sodium 133 L Potassium 4.2 Chloride 102 Carbon Dioxide 23 Anion Gap 8 BUN 19 Creatinine 1.00 Est GFR ( Amer) 94.2 Est GFR (Non-Af Amer) 77.9 BUN/Creatinine Ratio 19.0 Glucose 148 H POC Glucose (mg/dL) Hemoglobin A1c Lactic Acid Calcium 9.3 Magnesium 1.9 Total Bilirubin AST ALT Alkaline Phosphatase Total Creatine Kinase 2489 H 2195 H CK-MB (CK-2) > 300.0 H 296.0 H Myoglobin Troponin I 67.81 H* > 74.00 H* B-Natriuretic Peptide Total Protein Albumin Globulin Albumin/Globulin Ratio Triglycerides Cholesterol LDL Cholesterol LDL Cholesterol Direct HDL Cholesterol Urine Color Straw Urine Appearance Clear Urine pH 6.0 Ur Specific Monroe 1.015 Urine Protein Negative Urine Ketones Negative Urine Blood Negative Urine Nitrate Negative Urine Bilirubin Negative Urine Urobilinogen Negative Ur Leukocyte Esterase Negative Urine Glucose Negative 03/05/19 03/06/19 03/06/19 16:41 02:15 04:00 WBC RBC Hgb Hct MCV MCH MCHC RDW Plt Count MPV Neut % (Auto) Lymph % (Auto) Mingo % (Auto) Eos % (Auto) Baso % (Auto) Absolute Neuts (auto) Absolute Lymphs (auto) Absolute Monos (auto) Absolute Eos (auto) Absolute Basos (auto) Absolute Nucleated RBC Nucleated RBC % INR (Anticoag Therapy) APTT POC Activ Clotting Time Sodium 134 L Potassium 4.1 Chloride 104 Carbon Dioxide 24 Anion Gap 6 BUN 17 Creatinine 0.92 Est GFR ( Amer) 103.7 Est GFR (Non-Af Amer) 85.7 BUN/Creatinine Ratio 18.5 Glucose 120 H POC Glucose (mg/dL) 114 H Hemoglobin A1c Lactic Acid Calcium 9.4 Magnesium Total Bilirubin AST ALT Alkaline Phosphatase Total Creatine Kinase CK-MB (CK-2) Myoglobin Troponin I > 83.00 H* B-Natriuretic Peptide Total Protein Albumin Globulin Albumin/Globulin Ratio Triglycerides Cholesterol LDL Cholesterol LDL Cholesterol Direct HDL Cholesterol Urine Color Urine Appearance Urine pH Ur Specific Monroe Urine Protein Urine Ketones Urine Blood Urine Nitrate Urine Bilirubin Urine Urobilinogen Ur Leukocyte Esterase Urine Glucose Assessment and Plan Plan: case discussed with COP[employer] CHIEF Chelle at length. Though xeralto not ideal for APLS, the patient has already failed coumadin and refuses injections. compliance clearly critical, though fortunately he has not had clots while off of anticoagulation. Agree with full dose xeralto and follow up with Dr. Randhawa as outpatient.
--- NOTE | 2019-03-05 12:20 | HP ---
AMENDED REPORT NOW INCLUDES DESIGNATED COSIGNER - ESIGNED BEFORE ADJUSTMENTS CC: Dr. Urias * HISTORY AND PHYSICAL: DATE OF ADMISSION: 03/04/19 ATTENDING PHYSICIAN: Dr. Marilin Rivera, Interventional Cardiology.* (DICTATED BY ENZO SANDOVAL NP) PRIMARY CARE PHYSICIAN: Dr. Urias. PRIMARY CONDOMINIUM MANAGER/ONCOLOGIST: In the past, Dr. Randhawa. CHIEF COMPLAINT: Chest pain, diaphoresis. HISTORY OF PRESENT ILLNESS: This is a 53-year-old gentleman with a notable history of hypertension, hyperlipidemia, lupus anticardiolipin antibody, history of right lower extremity arterial clot in 2010. The patient reports at that time he underwent stenting. According to Dr. Randhawa's outpatient medical records, he had re-thrombosis while on Coumadin in 2011. The patient was treated with Xarelto therapy; however, due to medication noncompliance, he stopped taking Xarelto in 2016. He also suffers from COPD and peripheral vascular disease. The patient states that he has been in his usual state of health up until about 3 weeks ago when he started to develop resting chest pain, described as a toothache, located substernally, radiating down his left arm. Episodes would occur once a week lasting 10 to 15 minutes and would improve with position change, not related to activity. Since last week, episode frequency and intensity have been increasing. Apparently, he has been experiencing episodes 2 to 3 times since last week. He states that last night around 8 p.m., while watching TV, he started to develop substernal chest pain described as an ache; however, intensity was severe. Pain radiated down his left arm with associated diaphoresis. Pain was constant and ongoing, thus at 9:15 he called 911 and was transferred to [facility]. He was evaluated urgently in the emergency room where he was diagnosed with an anterior STEMI. The patient was given IV nitroglycerin, IV fentanyl, IV heparin therapy with a 4000-unit loading dose and was loaded with Brilinta 180 mg a day and taken urgently to the labor economics teacher. While in the labor economics teacher, he had a wide complex rhythm, did not require defibrillation. He underwent successful drug-eluting stent placement to proximal LAD. There was a distal dissection covered with 3 x 8 mm drug- eluting stent. Diag was jailed per Dr. Marilin Rivera. He was transferred to the ICU where he has been monitored since. He denies any recurrent chest pain. He does report dyspnea. Denies dizziness, lightheadedness, or palpitations. He offers no complaints at this time. PAST MEDICAL HISTORY: 1. right lower extremity arterial clot in 2010 with re-thrombosis, on Coumadin in 2011. 2. Peripheral vascular disease. 3. Lupus anticardiolipin antibody. 4. Hypertension. 5. Hyperlipidemia. 6. Ongoing tobacco abuse. 7. Medication noncompliance. 8. COPD. PAST SURGICAL HISTORY: According to the patient, he underwent stenting to right lower extremity in 2010. Medical records from [facility] have been requested. HOME MEDICATIONS: None. The patient reports stopping Xarelto therapy 2 years ago due to noncompliance. ALLERGIES: Include IV CONTRAST DYE, which according to the patient causes hives. FAMILY HISTORY: Noncontributory. SOCIAL HISTORY: The patient is single, lives with his parents and daughter. He smokes 2 packs per day for the last 30 years. Denies alcohol use or drug use. He is unemployed. REVIEW OF SYSTEMS: All systems have been reviewed and otherwise negative except as above mentioned in the HPI. PHYSICAL EXAMINATION GENERAL: The patient is sitting upright in bed, cooperative with the exam, appears in no apparent distress, A and O x3. HEENT: Head is atraumatic, normocephalic. Oral mucosa is moist. Tongue is midline. NECK: Supple. Trachea midline. No JVD. No carotid bruits. LUNGS: Auscultated posteriorly. No evidence of adventitious breath sounds. Respirations are unlabored. CARDIAC: Normal S1, S2. Regular rate and rhythm. No murmur, gallop, or rub noted. /GI: Bowel sounds are hyperactive in all 4 quadrants. No hepatomegaly with palpation. EXTREMITIES: 2+ dorsalis pedis pulses palpated bilaterally and symmetrically. 3+ left radial pulse. Right radial pulse 2+. No thrill. TR band in place. Cap refill less than 3 seconds. DIAGNOSTIC STUDIES/LAB DATA: Blood work from 03/04/19 reviewed. INR 1. Chemistry from 03/05/19: Sodium 133, potassium 4.2, chloride 102, carbon dioxide 23, BUN 19, creatinine 1, glucose 148. Hemoglobin A1c 6.1%. Troponin greater than 74, has not peaked. LDL 172. White count 10.2, hemoglobin 13.2, hematocrit 38, platelets 318. ECG from 03/04/19 at 2126: Sinus rhythm, rate [address] segment depression noted in V1 through V4 with reciprocal changes noted in II, III and aVF. ASSESSMENT AND PLAN: 1. Acute anterior ST-segment elevation myocardial infarction. The patient presented to [facility] 1.5 hours after onset of symptoms. He was taken urgently to the labor economics teacher where he underwent drug-eluting stent placement to proximal LAD. There was distal edge dissection covered with 3 x 8 mm drug- eluting stent and reported jailed diag. We will continue to cycle isoenzymes. Troponin has not peaked. Last isoenzyme was greater than 74. LV gram was not performed due to reported allergy to CONTRAST DYE. We will update echocardiogram. He has not had any recurrent complaints of chest pain since PCI. He is on aspirin 81 mg a day in combination with Brilinta 90 mg p.o. b.i.d. We will continue Lopressor therapy and high-intensity statin therapy. The patient will need to be seen by Hematology/Oncology due to history of lupus anticardiolipin antibody with prior right lower extremity arterial thrombosis with re-thrombosis on Coumadin in 2011, historically was on Xarelto therapy, but has stopped medication due to reported noncompliance. Ideally, we recommend dual antiplatelet therapy uninterrupted for 12 months' time due to presentation of ST-elevation myocardial infarction. Given complexity of case and possible requirement of triple therapy, again we will involve Hematology/ Oncology. 2. History of lupus anticardiolipin antibody with prior right lower extremity arterial thrombosis in 2010 with re-thrombosis on Coumadin in 2011 and reported right lower extremity vascular stent at [facility]. We will request records from [facility] and involve Hematology. Continue Lovenox therapy at this time. Right radial access is intact. No bleeding complications. 3. History of hypertension. We will continue Lopressor 50 mg p.o. b.i.d. and initiate MARA inhibitor therapy. Goal blood pressure is less than 130/80. 4. History of hyperlipidemia. We will continue high-intensity statin therapy. Goal LDL is less than 70. The patient will need repeat outpatient fasting lipid panel and liver function tests in 6 to 8 weeks' time. 5. Disposition: Pending course. Dr. Marilin Rivera has personally seen and examined the patient and agrees with the above assessment and plan. ENZO SANDOVAL, CUPOLA MELTER HELPER [id number]/[facility] #: [id number] [facility]
[2019-03-05] MEDS: Captopril TAB* 12.5 MG PO SCH ×2 (13:38→21:12)
[2019-03-05] MEDS: Nitroglycerin TAB 0.4 MG* 0.4 MG TAB SL PRN ×2 (13:41→16:46)
[2019-03-05] MEDS: Nicotine PATCH 21 MG/24 HR* PATCH TRANSDERM SCH (15:03)
[2019-03-05 15:37] LABS: Magnesium 1.9 mg/dL (1.9-2.7)
[2019-03-05] MEDS: Acetaminophen TAB* 325 MG PO PRN (16:46)
[2019-03-05 17:17] LABS: Troponin I > 83.00 ng/mL (<0.04)
[2019-03-05] MEDS: Metoprolol Tartrate TAB* 50 mg PO SCH (21:12)
[2019-03-05] MEDS: Temazepam CAP* 15 MG PO PRN (21:12)
[2019-03-05] MEDS: Nicotine Patch Removal NOTE PATCH OFF SCH (21:13)
[2019-03-06] MEDS: oxyCODONE/Acetamin 5/325 MG* TAB PO PRN (02:59)
[2019-03-06 04:26] LABS: BUN/Creatinine Ratio 18.5 (8-20); Calcium 9.4 mg/dL (8.6-10.3); EGFR African American 103.7 (>60); EGFR Non-African American 85.7 (>60); Potassium 4.1 mmol/L (3.5-5.0)
[2019-03-06] MEDS: Nicotine PATCH 21 MG/24 HR* PATCH TRANSDERM SCH (08:10)
[2019-03-06] MEDS: Metoprolol Tartrate TAB* 50 mg PO SCH ×2 (08:12→20:14)
[2019-03-06] MEDS: Captopril TAB* 12.5 MG PO SCH ×3 (08:12→20:14)
[2019-03-06] MEDS: Aspirin 81 mg CHEW TAB* 81 MG TAB.CHEW PO SCH (08:12)
[2019-03-06] MEDS: Ticagrelor* 90 MG TAB PO SCH (08:13)
[2019-03-06] MEDS ORDERED: Captopril TAB* 12.5 MG PO ONE (08:46)
--- NOTE | 2019-03-06 08:55 | PN ---
<Hannah Guzman - Last Filed: 03/06/19 08:48> Subjective Date of Service: 03/06/19 - anterior STEMI, h/o arterial thrombosis Interval History: Patient presented 03/04/2019 to [facility] after 1.5 hours of ongoing substernal chest pain (ache) radiating down left arm with diaphoresis. Underwent urgent LHC due to anterior STEMI resulted in DESx2 to LAD in overlapping fashion with jailed diag. Yesterday afternoon started to develop "jabbing" chest pain 5/10 associated with inspiration not movement. He was given excess sublingual NTG accidentally. SBP did go as low as 73 however, he rebounded and has been doing well since Medications Active Medications: Acetaminophen (Tylenol Tab*) 650 mg PO Q4H PRN PRN Reason: MILD PAIN or TEMP > 100.4 Last Admin: 03/05/19 16:46 Dose: 650 mg Aspirin (Aspirin 81 Mg Chew Tab*) 81 mg PO DAILY [facility] Last Admin: 03/06/19 08:12 Dose: 81 mg Atorvastatin Calcium (Lipitor*) 80 mg PO DAILY@1700 [facility] Last Admin: 03/05/19 16:38 Dose: 80 mg Captopril (Capoten Tab*) 6.25 mg PO TID [facility] Last Admin: 03/06/19 08:12 Dose: 6.25 mg Captopril (Capoten Tab*) 12.5 mg PO TID [facility] Clopidogrel Bisulfate (Plavix Tab*) 600 mg PO ONCE ONE Stop: 03/06/19 20:01 Clopidogrel Bisulfate (Plavix Tab*) 75 mg PO DAILY [facility] Metoprolol Tartrate (Lopressor Tab*) 50 mg PO BID [facility] Last Admin: 03/06/19 08:12 Dose: 50 mg Nicotine (Nicotine Patch 21 Mg/24 Hr*) 1 patch TRANSDERM DAILY@0800 [facility] Last Admin: 03/06/19 08:10 Dose: 1 patch Nitroglycerin (Nitroglycerin Tab 0.4 Mg*) 0.4 mg SL Q5M PRN PRN Reason: ANGINA Last Admin: 03/05/19 16:46 Dose: 0.4 mg Oxycodone/Acetaminophen (Percocet 5/325 Tab*) 1 tab PO Q6H PRN PRN Reason: PAIN - MODERATE Last Admin: 03/06/19 02:59 Dose: 1 tab Pharmacy Profile Note (Nicotine Patch Removal Note*) 1 note PATCH OFF 2100 [facility] Last Admin: 03/05/19 21:13 Dose: 1 note Rivaroxaban (Xarelto(*)) 20 mg PO 1700 [facility] Temazepam (Restoril Cap*) 15 mg PO BEDTIME PRN PRN Reason: INSOMNIA Last Admin: 03/05/19 21:12 Dose: 15 mg Objective Vital Signs: Temp Pulse Resp BP Pulse Ox 98.6 F 79 19 144/107 96 03/06/19 08:00 03/06/19 08:00 03/06/19 08:00 03/06/19 08:00 03/06/19 08:00 Oxygen Devices in Use Now: None Appearance: SOB with conversation, Alert and oriented. cooperative. Ears/Nose/Mouth/Throat: NL Teeth, Lips, Gums, Mucous Membranes Moist Neck: NL Appearance and Movements; NL JVP, Trachea Midline Respiratory: Symmetrical Chest Expansion and Respiratory Effort, Clear to Auscultation Cardiovascular: NL Sounds; No Murmurs; No JVD, No Edema Abdominal: NL Sounds; No Tenderness; No Distention Extremities: - - right radial access site examined. cap refill < 3 seconds. 2+ right radial pulse. no thrill or hematoma. Neurological: Alert and Oriented x 3 Lines/Tubes/Other Access: Clean, Dry and Intact Peripheral IV Laboratory Results: 03/04/19 21:38 03/06/19 04:00 INR (Anticoag Therapy) 1.00 (0.82-1.09) 03/04/19 21:38 APTT 29.0 seconds (26.0-38.0) 03/04/19 21:38 Total Bilirubin 0.50 mg/dL (0.2-1.0) 03/04/19 21:38 AST 20 U/L (13-39) 03/04/19 21:38 ALT 23 U/L (7-52) 03/04/19 21:38 Alkaline Phosphatase 52 U/L (34-104) 03/04/19 21:38 CK-MB (CK-2) 296.0 ng/mL (0.6-6.3) H 03/05/19 09:45 B-Natriuretic Peptide 62 pg/mL (<=100) 03/04/19 21:38 Total Protein 7.6 g/dL (6.4-8.9) 03/04/19 21:38 Albumin 4.3 g/dL (3.2-5.2) 03/04/19 21:38 Globulin 3.3 g/dL (2-4) 03/04/19 21:38 Albumin/Globulin Ratio 1.3 (1-3) 03/04/19 21:38 Triglycerides 254 mg/dL 03/04/19 21:38 Cholesterol 248 mg/dL 03/04/19 21:38 LDL Cholesterol 172 mg/dL 03/04/19 21:38 HDL Cholesterol 25.0 mg/dL 03/04/19 21:38 03/04/19 03/05/19 03/05/19 21:38 00:28 04:25 Troponin I 0.09 H* 16.85 H* 67.81 H* 03/05/19 03/05/19 09:45 16:41 Troponin I > 74.00 H* > 83.00 H* Laboratory Results - last 24 hr 03/05/19 03/05/19 03/05/19 09:15 09:45 16:41 Sodium Potassium Chloride Carbon Dioxide Anion Gap BUN Creatinine Est GFR ( Amer) Est GFR (Non-Af Amer) BUN/Creatinine Ratio Glucose POC Glucose (mg/dL) Calcium Magnesium 1.9 Total Creatine Kinase 2195 H CK-MB (CK-2) 296.0 H Troponin I > 74.00 H* > 83.00 H* Urine Color Straw Urine Appearance Clear Urine pH 6.0 Ur Specific [place] 1.015 Urine Protein Negative Urine Ketones Negative Urine Blood Negative Urine Nitrate Negative Urine Bilirubin Negative Urine Urobilinogen Negative Ur Leukocyte Esterase Negative Urine Glucose Negative 03/06/19 03/06/19 02:15 04:00 Sodium 134 L Potassium 4.1 Chloride 104 Carbon Dioxide 24 Anion Gap 6 BUN 17 Creatinine 0.92 Est GFR ( Amer) 103.7 Est GFR (Non-Af Amer) 85.7 BUN/Creatinine Ratio 18.5 Glucose 120 H POC Glucose (mg/dL) 114 H Calcium 9.4 Magnesium Total Creatine Kinase CK-MB (CK-2) Troponin I Urine Color Urine Appearance Urine pH Ur Specific [place] Urine Protein Urine Ketones Urine Blood Urine Nitrate Urine Bilirubin Urine Urobilinogen Ur Leukocyte Esterase Urine Glucose Diagnostic Imaging: [facility] 03/04/2019; Proximal LAD 90%, Lcx mid 50%, RCA PDA small with diffuse plaque. Patient underwent ELLEN to proximal LAD with 3X16mm ELLEN distal edge dissection covered with 3X8mm ELLEN. Doppler. Location: Bedside. Patient room number: ICU 8. Rhythm: Normal sinus rhythm with PVC's. Findings Left ventricle: The cavity size is normal. Wall thickness is mildly to moderately increased. Systolic function is mildly reduced. The estimated ejection fraction is 45-50%. Regional wall motion abnormalities: Hypokinesis of the mid-apicalanteroseptal myocardium. Hypokinesis of the apicalinferior myocardium. Hypokinesis of the apicallateral myocardium. Hypokinesis of the apicalanterior myocardium. Doppler parameters are consistent with abnormal left ventricular relaxation (grade 1 diastolic dysfunction). Right ventricle: The cavity size is normal. Systolic function is normal. Hypokinesis of the RV apex. Left atrium: The atrium is normal in size. Right atrium: The atrium is normal in size. Mitral valve: The leaflets are normal thickness. There is no evidence of stenosis. There is trace regurgitation. Aortic valve: The valve is trileaflet. The leaflets are mildly thickened. There is no evidence of stenosis. There is no significant regurgitation. Tricuspid valve: The leaflets are normal thickness. There is no evidence of stenosis. There is trace regurgitation. Pulmonic valve: The leaflets are normal thickness. There is no evidence of stenosis. There is trace regurgitation. Aorta: Aortic root: The aortic root is appears normal. Ascending aorta: The ascending aorta is appears normal. Aortic arch: The aortic arch is not dilated. Pericardium: There is no significant pericardial effusion. Pulmonary arteries: The main pulmonary artery is normal-sized. Systolic pressure can not be accurately estimated. Systemic veins: Not visualized. Measurements Left ventricle Value Ref Aortic valve Value Ref PARK, LAX 4.6 cm 4.2 - 5.8 Svetlana diam, ED 1.7 cm ---- ESD, LAX 3.8 cm 2.5 - 4.0 Peak v, S 1.27 m/ sec ---- FS, LAX (L) 17 % 25 - 43 VTI, S 21.3 cm ---- This report is only to be considered final once signed by the Provider(s) as displayed in the "<Electronically Signed by >" field (s). Absence of a signature indicates the report is in a draft status and still needs to be finalized. In the event this document was created by someone other than the signing Provider, the individual initiating the document will be listed in the "Entered by:" or "Dictated by:" mistry. EKG Data: 03/05/2019; NSR rate [address] elevation in V1-3 with bisphasic TW. 03/06/2019; NSR rate [address] elevation with TWI consistent with recent LA. Telemetry; reviewed. NSR rate 65-75. 6 beat count NSVT 03/05/2019 non since Assessment/Plan #1 s/p Anterior STEMI 03/04/2019. Patient presented after 1.5 hours of onset of symptoms. Underwent successful ELLEN/ Proximal LAD complicated by distal edge dissection covered with 3X8mm ELLEN, jailed Diag. LVEF 45-50%. On ASA 81/day and / Brilinta 90mg PO BID. Appreciate hematology consult. Given need for OAC will discontinue Brilinta and start Plavix. Last dose of Brilinta was this morning at 0800 thus will start Plavix 600mg PO x1 at 2000 today, then resume Plavix 75mg/day starting 03/07/2019. He will need ASA 81/day in combination with Plavix 75mg/day and Xarelto 20mg/day x30 days. After 30 days stop ASA 81/day and CONTINUE Plavix 75mg/day in combination with Xarelto 20mg/day. It was decided to do 30 days of triple therapy due to ELLEN x2 to LAD in overlapping fashion. #2 h/o recurrent Right lower extremity arterial thrombus treated at [facility]. Per patient he underwent stenting to right popliteal in 2010 and in 2011 had a recurrent arterial thrombus while on Coumadin. 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 Heme evaluated patient yesterday. It was decided to start Xarelto 20mg/day. Appreciate input. Will monitor closely for bleeding complications. Right radial access is intact, no bleeding or hematoma. #3 h/o HLD; LDL this admit 172. Now on Lipitor 80QHS. Will need repeat FLP/LFT in 6-8 weeks. #4 HTN; on Lopressor 50mg PO BID, Captopril 6.25mg PO TID. Will increase Captopril to 12.5mg PO TID. #5 Disposition pending course. Patient full code. Will d/w Dr Rivera. Will transfer to telemetry. Attending: Marilin Rivera <Marilin Rivera - Last Filed: 03/06/19 15:28> Medications Active Medications: Acetaminophen (Tylenol Tab*) 650 mg PO Q4H PRN PRN Reason: MILD PAIN or TEMP > 100.4 Last Admin: 03/06/19 14:20 Dose: 650 mg Aspirin (Aspirin 81 Mg Chew Tab*) 81 mg PO DAILY [facility] Last Admin: 03/06/19 08:12 Dose: 81 mg Atorvastatin Calcium (Lipitor*) 80 mg PO DAILY@1700 [facility] Last Admin: 03/05/19 16:38 Dose: 80 mg Captopril (Capoten Tab*) 12.5 mg PO TID [facility] Last Admin: 03/06/19 14:20 Dose: 12.5 mg Clopidogrel Bisulfate (Plavix Tab*) 600 mg PO ONCE ONE Stop: 03/06/19 20:01 Clopidogrel Bisulfate (Plavix Tab*) 75 mg PO DAILY [facility] Metoprolol Tartrate (Lopressor Tab*) 50 mg PO BID [facility] Last Admin: 03/06/19 08:12 Dose: 50 mg Nicotine (Nicotine Patch 21 Mg/24 Hr*) 1 patch TRANSDERM DAILY@0800 [facility] Last Admin: 03/06/19 08:10 Dose: 1 patch Nitroglycerin (Nitroglycerin Tab 0.4 Mg*) 0.4 mg SL Q5M PRN PRN Reason: ANGINA Last Admin: 03/05/19 16:46 Dose: 0.4 mg Oxycodone/Acetaminophen (Percocet 5/325 Tab*) 1 tab PO Q6H PRN PRN Reason: PAIN - MODERATE Last Admin: 03/06/19 02:59 Dose: 1 tab Pharmacy Profile Note (Nicotine Patch Removal Note*) 1 note PATCH OFF 2100 [facility] Last Admin: 03/05/19 21:13 Dose: 1 note Rivaroxaban (Xarelto(*)) 20 mg PO 1700 [facility] Temazepam (Restoril Cap*) 15 mg PO BEDTIME PRN PRN Reason: INSOMNIA Last Admin: 03/05/19 21:12 Dose: 15 mg Objective Vital Signs: Temp Pulse Resp BP Pulse Ox 98.6 F 89 21 126/87 98 03/06/19 12:00 03/06/19 14:00 03/06/19 14:00 03/06/19 12:22 03/06/19 14:00 Laboratory Results: 03/04/19 21:38 03/06/19 04:00 INR (Anticoag Therapy) 1.00 (0.82-1.09) 03/04/19 21:38 APTT 29.0 seconds (26.0-38.0) 03/04/19 21:38 Total Bilirubin 0.50 mg/dL (0.2-1.0) 03/04/19 21:38 AST 20 U/L (13-39) 03/04/19 21:38 ALT 23 U/L (7-52) 03/04/19 21:38 Alkaline Phosphatase 52 U/L (34-104) 03/04/19 21:38 CK-MB (CK-2) 296.0 ng/mL (0.6-6.3) H 03/05/19 09:45 B-Natriuretic Peptide 62 pg/mL (<=100) 03/04/19 21:38 Total Protein 7.6 g/dL (6.4-8.9) 03/04/19 21:38 Albumin 4.3 g/dL (3.2-5.2) 03/04/19 21:38 Globulin 3.3 g/dL (2-4) 03/04/19 21:38 Albumin/Globulin Ratio 1.3 (1-3) 03/04/19 21:38 Triglycerides 254 mg/dL 03/04/19 21:38 Cholesterol 248 mg/dL 03/04/19 21:38 LDL Cholesterol 172 mg/dL 03/04/19 21:38 HDL Cholesterol 25.0 mg/dL 03/04/19 21:38 03/04/19 03/05/1903/05/19 21:38 00:28 04:25 Troponin I 0.09 H* 16.85 H* 67.81 H* 03/05/19 03/05/19 03/06/19 09:45 16:41 09:20 Troponin I > 74.00 H* > 83.00 H* 43.35 H* Assessment/Plan Agree with above.
[2019-03-06] MEDS ORDERED: Captopril TAB* 12.5 MG PO SCH (09:00)
[2019-03-06 10:06] LABS: Troponin I 43.35 ng/mL (<0.04)
[2019-03-06] MEDS: Acetaminophen TAB* 325 MG PO PRN (14:20)
[2019-03-06] MEDS: Atorvastatin* 80 MG TAB PO SCH (16:54)
[2019-03-06] MEDS: Rivaroxaban TAB(*) 20 MG TAB PO SCH (16:55)
--- NOTE | 2019-03-06 18:28 | PN ---
Progress Note - Progress Note Date of Service: 03/06/19 SOAP: Subjective: []doing well, no chest pain. Walking around floor w/o difficulty. Hoping for discharge on Saturday. Acetaminophen (Tylenol Tab*) 650 mg PO Q4H PRN PRN Reason: MILD PAIN or TEMP > 100.4 Last Admin: 03/06/19 14:20 Dose: 650 mg Aspirin (Aspirin 81 Mg Chew Tab*) 81 mg PO DAILY [facility] Last Admin: 03/06/19 08:12 Dose: 81 mg Atorvastatin Calcium (Lipitor*) 80 mg PO DAILY@1700 [facility] Last Admin: 03/06/19 16:54 Dose: 80 mg Captopril (Capoten Tab*) 12.5 mg PO TID [facility] Last Admin: 03/06/19 14:20 Dose: 12.5 mg Clopidogrel Bisulfate (Plavix Tab*) 600 mg PO ONCE ONE Stop: 03/06/19 20:01 Clopidogrel Bisulfate (Plavix Tab*) 75 mg PO DAILY [facility] Metoprolol Tartrate (Lopressor Tab*) 50 mg PO BID [facility] Last Admin: 03/06/19 08:12 Dose: 50 mg Nicotine (Nicotine Patch 21 Mg/24 Hr*) 1 patch TRANSDERM DAILY@0800 [facility] Last Admin: 03/06/19 08:10 Dose: 1 patch Nitroglycerin (Nitroglycerin Tab 0.4 Mg*) 0.4 mg SL Q5M PRN PRN Reason: ANGINA Last Admin: 03/05/19 16:46 Dose: 0.4 mg Oxycodone/Acetaminophen (Percocet 5/325 Tab*) 1 tab PO Q6H PRN PRN Reason: PAIN - MODERATE Last Admin: 03/06/19 02:59 Dose: 1 tab Pharmacy Profile Note (Nicotine Patch Removal Note*) 1 note PATCH OFF 2100 [facility] Last Admin: 03/05/19 21:13 Dose: 1 note Rivaroxaban (Xarelto(*)) 20 mg PO 1700 [facility] Last Admin: 03/06/19 16:55 Dose: 20 mg Temazepam (Restoril Cap*) 15 mg PO BEDTIME PRN PRN Reason: INSOMNIA Last Admin: 03/05/19 21:12 Dose: 15 mg Objective: [] Vital Signs Temp Pulse Resp BP Pulse Ox 98.0 F 91 18 127/82 98 03/06/19 15:06 03/06/19 15:06 03/06/19 15:06 03/06/19 15:06 03/06/19 15:06 HEENT: OM moist, no bleeding, no lesions CTA RRR S12 +BS NT ND ext s/p surgery r leg, no edema skin no bruising Assessment: []53 year old male previously managed on Xarelto for thrombophilia and recurrent arterial thrombi. Off therapy for several years and lost to follow up. Now presents with AMI. Plan: []1. Agree with anticoagulation with Plavix, ASA and Xarelto. 2. Take Xarleto at night with food. 3. If discharged over weekend will follow up next 14 days in clinic.
[2019-03-06] MEDS ORDERED: Clopidogrel TAB* 300 MG PO ONE (20:00)
[2019-03-06] MEDS: Nicotine Patch Removal NOTE PATCH OFF SCH (20:15)
[2019-03-07 08:14] LABS: Hematocrit 38 % (42-52); Hemoglobin 12.7 g/dL (14.0-18.0); Mean Corpuscular HGB Conc 34 g/dL (31-36); Mean Corpuscular Hemoglobin 30 pg (27-31); Mean Corpuscular Volume 89 fL (80-94); Mean Platelet Volume 8.1 fL (7.4-10.4); Platelet Count 283 10^3/uL (150-450); Red Blood Count 4.24 10^6 /uL (4.18-5.48); Red Cell Distribution Width 15 % (10-15); White Blood Count 14.4 10^3/uL (3.5-10.8)
[2019-03-07 08:50] LABS: ABS Lymphocytes 1.7 10^3/ul (1.0-4.8); ABS Monocytes 1.9 10^3/ul (0-0.8); ABS Neutrophils 10.7 10^3/ul (1.5-7.7); Eosinophil % 0.1 %; Lymphocyte % 12.1 %
[2019-03-07] MEDS: Nicotine PATCH 21 MG/24 HR* PATCH TRANSDERM SCH (08:55)
[2019-03-07] MEDS: Clopidogrel TAB* 75 MG PO SCH (08:56)
[2019-03-07] MEDS: Captopril TAB* 12.5 MG PO SCH ×3 (08:56→20:10)
[2019-03-07] MEDS: Metoprolol Tartrate TAB* 50 mg PO SCH ×2 (08:56→20:11)
[2019-03-07] MEDS: Aspirin 81 mg CHEW TAB* 81 MG TAB.CHEW PO SCH (08:56)
[2019-03-07] MEDS: Nitroglycerin TAB 0.4 MG* 0.4 MG TAB SL PRN ×2 (09:12→16:01)
[2019-03-07] MEDS: Atorvastatin* 80 MG TAB PO SCH (15:57)
[2019-03-07] MEDS: Rivaroxaban TAB(*) 20 MG TAB PO SCH (15:57)
[2019-03-07] MEDS: Nicotine Patch Removal NOTE PATCH OFF SCH (20:10)
[2019-03-07] MEDS ORDERED: LORazepam TAB(*) 1 MG PO PRN (20:21)
[2019-03-07] MEDS: Temazepam CAP* 15 MG PO PRN (22:24)
[2019-03-08] MEDS: Nicotine PATCH 21 MG/24 HR* PATCH TRANSDERM SCH (08:04)
[2019-03-08] MEDS: Aspirin 81 mg CHEW TAB* 81 MG TAB.CHEW PO SCH (08:05)
[2019-03-08] MEDS: Clopidogrel TAB* 75 MG PO SCH (08:05)
[2019-03-08] MEDS ORDERED: Lisinopril TAB* 10 MG PO SCH (09:00)
[2019-03-08] MEDS ORDERED: Metoprolol Succinate XL TAB* 100 MG PO SCH (09:00)
[2019-03-08 11:07] VITALS: BP 104/76
--- NOTE | 2019-03-08 14:26 | DS ---
CC: Dr. Urias; Dr. Randhawa * DISCHARGE SUMMARY: DATE OF ADMISSION: 03/05/19 DATE OF DISCHARGE: 03/08/19 PRIMARY CARE PHYSICIAN: Dr. Urias. DISCHARGE DIAGNOSES: 1. Anterior wall ST-elevation infarct. 2. Thrombophilia. 3. Tobacco use. 4. Prediabetes. 5. Prior right lower extremity arterial thrombosis with stenting. 6. Hyperlipidemia. 7. Left ventricular systolic dysfunction, acute. 8. Hypertension. 9. Chronic obstructive pulmonary disease. 10. CONTRAST ALLERGY. DISPOSITION: To home. DISCHARGE CONDITION: Stable. DISCHARGE MEDICATIONS: 1. Aspirin 81 mg daily, planned for 1 month before discontinuation. 2. Lipitor 80 mg daily. 3. Plavix 75 mg daily. 4. Lisinopril 10 mg daily. 5. Toprol-XL 100 mg daily. 6. Nicotine patch 21 mg daily. 7. Nitroglycerin 0.4 sublingual p.r.n. 8. Rivaroxaban 20 mg daily. ACTIVITY: No strenuous exertion for the next week, to avoid heavy lifting with right upper extremity. WOUND CARE: Shower only for 2 days. FOLLOWUP: To call Dr. Randhawa's office for a followup within the next 2 weeks. To call our office for wrist check with Dr. Naidu next week. To call Dr. Urias's office to arrange a followup visit. DIET: Low-fat, low-cholesterol, cardiac. PRIOR PROCEDURES: Cardiac cath, stent placement to LAD, 3.0 x 16 Synergy drug- eluting stent with distal overlapping 3.0 x 8 Synergy drug-eluting stent for edge dissection. HISTORY: See H and P. LABORATORY DATA: In hospital, blood sugar remained somewhat elevated, hemoglobin A1c was 6.1. The patient was informed that he has prediabetes, implications thereof and management thereof. He will pursue this with Dr. Urias. Creatinine remained stable. His CPK peaked at 2489, MB greater than 300. His troponin peaked greater than 83. EKG on 03/06/19 demonstrated post infarct evolution with T-wave inversion in 1, aVL, V1 through V5 with QS in V1, V2, and persisting slight ST elevation of 2 mm in the right precordial leads. Echocardiogram on 03/05/19 reported LVEF of 45 to 50 with hypokinesis of the mid apical anterolateral and apical inferior left ventricle. RV systolic pressure could not be estimated. Chest x-ray showed no acute changes. Admission lipid profile: Total cholesterol 248, triglycerides high at 254, LDL 172 with direct LDL of 196, HDL low at 25. Presenting lactate was 2.7. HOSPITAL COURSE: He presented with acute anterior ST-elevation infarct, underwent catheterization after premedication with IV Solu-Medrol and Benadryl without allergic manifestations. LV gram was not performed due to history of contrast reaction manifest by rash and hives. He had a culprit LAD lesion, which was stented with a 3 x 16 drug-eluting stent and a 3 x 8 overlapping drug- eluting stent distally for distal edge dissection. He has extensive atherosclerosis without other critical stenosis. His PDA is small with diffuse plaquing with 50% to 60% stenosis. Circumflex had a mid 50% stenosis. He needs aggressive secondary risk factor modification and received instructions thereof. He is planning to try to quit smoking, he is tolerating nicotine patch 21 mg daily. He ambulated without difficulty, had no significant arrhythmias or heart failure. He had recurring episodes of very brief atypical chest pain post infarct without any re-elevation in troponins or EKG changes. His right radial cath site is stable. He is tolerating his medical regimen, was seen by Hematology for his history of thrombophilia. He is being discharged on rivaroxaban, Plavix, and aspirin. Our recommendation is to discontinue aspirin after about a month and continue his NOAC and Plavix. He received full discharge instructions. On the day of discharge, vitals are stable, he is asymptomatic with a patent right radial artery by reverse Hebert. He has a few rhonchi, no rales. Cardiac exam is unremarkable. [id number]/[facility] #: [id number] [facility]
--- NOTE | 2019-03-09 11:21 | CATH ---
CC: Dr. Urias; Marilin Rivera MD; Dr. Randhawa, Heme/Onc * STENT REPORT: DATE OF PROCEDURE: 03/04/19 - ROOM #446 PRIMARY CARE PHYSICIAN: Dr. Urias. PROCEDURE: Right radial artery access, bilateral selective coronary cineangiography, left heart catheterization, stent placement LAD, 3.0 x 16 Synergy drug-eluting stent, distal overlapping 3.0 x 8 Synergy drug-eluting stent. HEMODYNAMICS: Initial AO 138/95, LV 132/12-17, no aortic valve gradient on pullback. HISTORY: A 53-year-old male with history of thrombophilia with prior right lower extremity arterial thrombosis, previously treated with NOAC. He has self - discontinued all his meds. In retrospect for about 2 weeks, he has had exertional dyspnea and unstable angina. He presented with an anterior ST elevation infarct. PROCEDURE ACCESS: Right radial artery sheath 6F slender. MEDICATIONS: 1. Heparin 3000 units. 2. Nitroglycerin 300 mcg. 3. Verapamil 3 mg IA. 4. Subcu lidocaine. 5. IV Versed. 6. IV fentanyl. 7. Solu-Medrol 40 mg. 8. Benadryl 50 mg IV for history of CONTRAST allergy with hives and rash. 9. Brilinta 180 mg p.o. loading dose. 10. Heparin 6000 units. ANGIOGRAPHY: RCA: The RCA is large, dominant with diffuse nonobstructive atherosclerosis in its proximal portion. The PDA is small, has diffuse plaquing with a mid 75% to 80% stenosis, vessel reference diameter is probably less than 2 mm. The PDA is followed by a moderate posterolateral, which has nonobstructive luminal irregularity followed by a smaller more distal posterolateral. Left main: The left main has mild irregularity, no significant stenosis. LAD: The LAD has moderate calcification, it extends past the apex. There is a small first diagonal, which has ostial 60% to 70% stenosis, followed almost immediately by an eccentric 80% to 90% stenosis. Distal LAD reaches past the apex, supplies a moderate diagonal, distal LAD. Has scattered luminal irregularity. Circumflex: Circumflex is moderate, not dominant with too small marginals, the SA manny artery, supplies a single marginal branch, which has a short 50% stenosis. Distally, the marginal has scattered nonobstructive plaquing. After drug-eluting stent placement at the culprit lesion, straddling the small first diagonal, there was a distal non-occlusive edge dissection. The diagonal has ARGELIA 1 flow, was not intervened upon because of small diameter size. After a second distal overlapping drug-eluting stent placement and high pressure post dilatation, the LAD has ARGELIA 3 flow. There is no residual stenosis. First diagonal still has ARGELIA 1 flow. CONCLUSION: 1. Three-vessel coronary disease with culprit LAD high-grade stenosis with ST elevation infarct presentation. 2. Successful stent placement to LAD. The jailed first diagonal has ARGELIA 1 flow, was not treated due to small size. His intermediate PDA and circumflex stenoses will be treated medically. If necessary, he will have outpatient stress imaging. 3. Successful right radial artery access. [id number]/[facility] #: [id number] ANJELICA
== END 2019-03-08 13:26 | disposition home or self-care (01) | DRG 174 ==
LOC: ED 21:22 → CHICATH 21:48 → ICU 23:26 → MEDTELE 03-06 15:45
PROVIDERS: ADMIT Internal Medicine; ATTEND Internal Medicine Cardiovascular Disease
PROC: B2111ZZ Fluoroscopy of Multiple Coronary Arteries using Low Osmolar Contrast (ICD-10-PCS; 2019-03-04)
PROC: 4A023N7 Measurement of Cardiac Sampling and Pressure, Left Heart, Percutaneous Approach (ICD-10-PCS; 2019-03-04)
PROC: 027035Z Dilation of Coronary Artery, One Artery with Two Drug-eluting Intraluminal Devices, Percutaneous Approach (ICD-10-PCS; principal; 2019-03-04 15:00)
DX: I21.09 ST elevation (STEMI) myocardial infarction involving other coronary artery of anterior wall (principal); I25.42 Coronary artery dissection; D68.61 Antiphospholipid syndrome; I73.9 Peripheral vascular disease, unspecified; I10 Essential (primary) hypertension; J44.9 Chronic obstructive pulmonary disease, unspecified; F32.9 Major depressive disorder, single episode, unspecified; E78.5 Hyperlipidemia, unspecified; F17.210 Nicotine dependence, cigarettes, uncomplicated; I95.9 Hypotension, unspecified; R73.03 Prediabetes; R07.89 Other chest pain; I51.9 Heart disease, unspecified; I25.10 Atherosclerotic heart disease of native coronary artery without angina pectoris; Z28.21 Immunization not carried out because of patient refusal; Z95.820 Peripheral vascular angioplasty status with implants and grafts; Z91.041 Radiographic dye allergy status; Z80.1 Family history of malignant neoplasm of trachea, bronchus and lung; Z91.14 Patient's other noncompliance with medication regimen; Z79.02 Long term (current) use of antithrombotics/antiplatelets; Z79.01 Long term (current) use of anticoagulants
CPT/HCPCS: 36415; 71045; 80048; 80053; 80061; 81003; 82550; 82553; 83036; 83605; 83721; 83735; 83874; 83880; 84484; 85025; 85347; 85610; 85730; 87641; 93005; 93306; 99156; 99157; 99223; 99285; A9270-GY; C1725; C1769; C1876; C1887; C9606-LD; J1200; J1644; J1650; J2250; J2930; J3010; J3480

== ENCOUNTER 2021-04-17 14:36 | Inpatient (IN) ==
[2021-04-17] MEDS ORDERED: Albuterol/Ipratropium NEB.SOL (2.5/0.5 MG) 3 ML NEB.SOLN INH ONE (14:40)
[2021-04-17 15:00] LABS: ABS Lymphocytes 0.9 10^3/ul (1.0-4.8); ABS Monocytes 0.9 10^3/ul (0-0.8); ABS Neutrophils 8.8 10^3/ul (1.5-7.7); Eosinophil % 0.2 %; Hematocrit 33 % (42-52); Hemoglobin 11.3 g/dL (14.0-18.0); Lymphocyte % 8.1 %; Mean Corpuscular HGB Conc 35 g/dL (31-36); Mean Corpuscular Hemoglobin 30 pg (27-31); Mean Corpuscular Volume 87 fL (80-94); Mean Platelet Volume 7.9 fL (7.4-10.4); Platelet Count 340 10^3/uL (150-450); Red Blood Count 3.74 10^6 /uL (4.18-5.48); Red Cell Distribution Width 15 % (10-15); White Blood Count 10.6 10^3/uL (3.5-10.8)
[2021-04-17 15:03] LABS: PCO2 Arterial 31 mmHg (35-45); PO2 Arterial 131 mmHg (80-100)
[2021-04-17 15:18] LABS: ALT 14 U/L (7-52); AST 24 U/L (13-39); Albumin 4.1 g/dL (3.2-5.2); Albumin/Globulin Ratio 1.2 (1-3); Alkaline Phosphatase 47 U/L (35-149); Anion Gap 8 mmol/L (2-11); Blood Urea Nitrogen 11 mg/dL (6-24); CO2 Carbon Dioxide 23 mmol/L (22-32); Calcium 8.9 mg/dL (8.6-10.3); Chloride 96 mmol/L (101-111); Globulin 3.4 g/dL (2-4); Glucose 137 mg/dL (70-100); Potassium 4.3 mmol/L (3.5-5.0); Sodium 127 mmol/L (135-145); Total Protein 7.5 g/dL (6.4-8.9); eGFR CKD-EPI 91.6 (>60)
[2021-04-17 15:21] LABS: Troponin I 0.68 ng/mL (<0.03)
[2021-04-17] MEDS ORDERED: Ondansetron 4 mg VIAL 2 MG/ML 2 ml VIAL IV PRN (17:07)
[2021-04-17] MEDS ORDERED: Enoxaparin 40 MG/0.4 ML SYR SUBCUT SCH (18:00)
[2021-04-17] MEDS ORDERED: Albuterol HFA INHALER 8 gm MDI INH SCH (18:00)
[2021-04-17] MEDS: SPIRIVA Respimat (tiotropium) 2.5 mcg/inh Inhaler INH SCH (18:45)
[2021-04-17] MEDS: methylPREDNISolone SOD 40 mg/ml 1 ml VIAL IV SCH (18:46)
[2021-04-17] MEDS: Albuterol HFA INHALER 8 gm MDI INH SCH ×2 (20:13→22:45)
[2021-04-17 20:18] LABS: Troponin I 0.38 ng/mL (<0.03)
[2021-04-17] MEDS ORDERED: Furosemide 20 mg/2 ml IV VIAL IV ONE (20:19)
[2021-04-18] MEDS: Albuterol HFA INHALER 8 gm MDI INH SCH ×6 (02:07→22:47)
[2021-04-18] MEDS: methylPREDNISolone SOD 40 mg/ml 1 ml VIAL IV SCH ×2 (05:56→17:16)
[2021-04-18 05:58] LABS: ABS Lymphocytes 0.5 10^3/ul (1.0-4.8); ABS Monocytes 0.3 10^3/ul (0-0.8); ABS Neutrophils 8.8 10^3/ul (1.5-7.7); Eosinophil % 0.1 %; Hematocrit 32 % (42-52); Lymphocyte % 5.4 %; Mean Corpuscular HGB Conc 34 g/dL (31-36); Mean Corpuscular Hemoglobin 30 pg (27-31); Mean Corpuscular Volume 87 fL (80-94); Mean Platelet Volume 7.8 fL (7.4-10.4); Platelet Count 358 10^3/uL (150-450); Red Cell Distribution Width 15 % (10-15); White Blood Count 9.7 10^3/uL (3.5-10.8)
[2021-04-18 06:15] LABS: Calcium 9.5 mg/dL (8.6-10.3); Potassium 4.5 mmol/L (3.5-5.0); eGFR CKD-EPI 90.5 (>60)
[2021-04-18] MEDS: SPIRIVA Respimat (tiotropium) 2.5 mcg/inh Inhaler INH SCH (08:31)
[2021-04-18] MEDS ORDERED: Perflutren Lipid Microsphere 3 ML VIAL ONE (11:53)
[2021-04-18 12:58] LABS: Magnesium 2.2 mg/dL (1.9-2.7)
[2021-04-18] MEDS ORDERED: Furosemide 40 mg/4 ml IV VIAL IV ONE (19:09)
[2021-04-19] MEDS: Albuterol HFA INHALER 8 gm MDI INH SCH ×4 (03:30→14:16)
[2021-04-19] MEDS: methylPREDNISolone SOD 40 mg/ml 1 ml VIAL IV SCH ×2 (06:29→17:52)
[2021-04-19 07:38] LABS: ABS Lymphocytes 0.6 10^3/ul (1.0-4.8); ABS Monocytes 0.7 10^3/ul (0-0.8); ABS Neutrophils 10.5 10^3/ul (1.5-7.7); Hematocrit 32 % (42-52); Hemoglobin 10.5 g/dL (14.0-18.0); Lymphocyte % 5.5 %; Mean Corpuscular HGB Conc 33 g/dL (31-36); Mean Corpuscular Hemoglobin 29 pg (27-31); Mean Corpuscular Volume 88 fL (80-94); Mean Platelet Volume 7.9 fL (7.4-10.4); Platelet Count 364 10^3/uL (150-450); Red Blood Count 3.64 10^6 /uL (4.18-5.48); Red Cell Distribution Width 15 % (10-15); White Blood Count 11.9 10^3/uL (3.5-10.8)
[2021-04-19 07:56] LABS: Potassium 4.9 mmol/L (3.5-5.0); eGFR CKD-EPI 86.3 (>60)
[2021-04-19] MEDS: SPIRIVA Respimat (tiotropium) 2.5 mcg/inh Inhaler INH SCH (08:18)
[2021-04-19] MEDS: Nicotine PATCH 21 MG/24 HR PATCH TRANSDERM SCH (08:42)
[2021-04-19] MEDS: Isosorbide Mononit ER 30mg TAB PO SCH (08:43)
[2021-04-19] MEDS: Furosemide 40 mg/4 ml IV VIAL IV SCH (08:44)
[2021-04-19] MEDS ORDERED: Albuterol HFA INHALER 8 gm MDI INH PRN (15:00)
[2021-04-20] MEDS: methylPREDNISolone SOD 40 mg/ml 1 ml VIAL IV SCH (05:28)
[2021-04-20 06:04] LABS: ABS Lymphocytes 0.7 10^3/ul (1.0-4.8); ABS Monocytes 0.6 10^3/ul (0-0.8); ABS Neutrophils 9.3 10^3/ul (1.5-7.7); Hematocrit 32 % (42-52); Mean Corpuscular HGB Conc 34 g/dL (31-36); Mean Corpuscular Hemoglobin 30 pg (27-31); Mean Corpuscular Volume 88 fL (80-94); Mean Platelet Volume 8.1 fL (7.4-10.4); Platelet Count 346 10^3/uL (150-450); Red Cell Distribution Width 15 % (10-15); White Blood Count 10.7 10^3/uL (3.5-10.8)
[2021-04-20 06:27] LABS: Albumin 3.7 g/dL (3.2-5.2); Albumin/Globulin Ratio 1.2 (1-3); C Reactive Protein 40.53 mg/L (<8.01); Potassium 4.6 mmol/L (3.5-5.0); Total Bilirubin 0.8 mg/dL (0.2-1.0); Total Protein 6.7 g/dL (6.4-8.9); eGFR CKD-EPI 84.3 (>60)
[2021-04-20] MEDS: Furosemide 40 mg/4 ml IV VIAL IV SCH (09:13)
[2021-04-20] MEDS: Nicotine PATCH 21 MG/24 HR PATCH TRANSDERM SCH (09:13)
[2021-04-20] MEDS: Isosorbide Mononit ER 30mg TAB PO SCH (09:13)
[2021-04-20] MEDS: SPIRIVA Respimat (tiotropium) 2.5 mcg/inh Inhaler INH SCH (09:49)
[2021-04-20 11:51] VITALS: BP 117/85
== END 2021-04-20 13:46 | disposition home or self-care (01) | DRG 194 ==
LOC: ED 14:36 → SUATTDRO 17:08 → EDHOLD 17:08 → MEDTELE 04-18 16:44
PROVIDERS: ADMIT Hospitalist; ATTEND Hospitalist